=== PATIENT | female | born 1950 | race Caucasian/White ===

== ENCOUNTER 2024-08-16 16:20 | Emergency (ER) | payer OTHER, SELFPAY ==
--- NOTE | ~2024-08-16 | XR_ITS ---
XR chest 1V portable DATE: 08/16/2024 16:55 INDICATION: Weakness TECHNIQUE: Portable AP chest on 08/16/2024 at 1648 hours COMPARISON: None FINDINGS: Left transvenous pacemaker device with leads overlying right atrium, right ventricle and co ronary sinus. Normal heart size. Aortic arch calcification, aortic unfolding. No hilar or mediastinal enlargement. Minimal atelectasis is suggested at the lung bases. The lungs otherwise appear clear. Osteopenia. Degenerative spurring of the thoracic spine. IMPRESSION: Minimal atelectasis at the lung bases Triple lead left pacemaker device Reviewed, dictated and finalized at [facility].
--- NOTE | ~2024-08-16 | CT_ITS ---
EXAMINATION: CT abdomen pelvis w con DATE: 08/16/2024 19:36 INDICATION: Generalized abdominal pain TECHNIQUE: Computed tomography (CT) of the abdomen and pelvis was performed without intravenous contr ast. Automated exposure control and iterative reconstruction technique were employed. Exam dose: 695 .20 mGy-cm total exam DLP. COMPARISON: None. FINDINGS: Lung bases are clear of infiltrate or consolidation. Pacemaker leads in right atrium, right ventricle and coronary sinus. Heart size is within normal limits. No pericardial or pleural effusion. Multiple scattered hepatic cysts measuring from a few millimeters up to approximately 2.6 cm maximal dimension. No suspicious hepatic space-occupying mass lesion is detected. There is a 5.7 x 8.3 mm calculus at the gallbladder neck. No gallbladder wall thickening or perichole cystic fluid or fat stranding. No bile duct or pancreatic duct dilatation. No pancreatic mass lesion or calcification. Normal splenic size. Normal morphology of the adrenal glands. 1.5 cm right renal cyst. The kidneys are otherwise unremarkable. No urinary tract calculus or hydrour eteronephrosis. The urinary bladder appears unremarkable. The uterus and adnexal areas are likewise u nremarkable. Normal caliber and minimal calcification of the abdominal aorta. There is prominent calcification at the origin of the right renal artery and to a lesser extent left renal artery. No intraperitoneal or retroperitoneal or pelvic mass lesion or adenopathy or ascites is detected. Normal appendix. There are fluid levels within the colon and there are is soft tissue thickening of the colon wall, mo st prominent in the proximal sigmoid colon, suggesting colitis. There are occasional distal sigmoid d iverticulosis; no associated diverticulitis is noted. No bowel obstruction or intraperitoneal free air. Very small fat-containing umbilical hernia. IMPRESSION: Colon wall thickening and colonic air-fluid levels, suggesting colitis Mild distal sigmoid diverticulosis; no apparent diverticulitis Normal appendix Hepatic and right renal cysts 5.7 x 8.3 mm calculus at gallbladder neck; no gallbladder wall thickening or pericholecystic fluid or fat stranding Reviewed, dictated and finalized at [facility]. Reviewed, dictated and finalized at [facility]. IMPRESSION: Colon wall thickening and colonic air-fluid levels, suggesting col itis Mild distal sigmoid diverticulosis; no apparent diverticulitis Normal appendix Hepatic and right renal cysts 5.7 x 8.3 mm calculus at gallbladder neck; no gallbladder wall thickening or pe richolecystic fluid or fat stranding
[2024-08-16 16:22] VITALS: BP 107/63; PULSE 75; RESP 11; TEMP 36.4; O2SAT 95
--- NOTE | 2024-08-16 16:23 | ECG_ITS ---
Test Date: 2024-08-16 16:29:06 Measurements Intervals [place] Rate: 76 P: 53 CA: 187 QRS: -26 QRSD: 123 T: -5 QT: 390 QTc: 440 Interpretive Statements SINUS RHYTHM INTRAVENTRICULAR CONDUCTION DELAY LEFT VENTRICULAR HYPERTROPHY WITH ST-T CHANGE POOR R WAVE PROGRESSION NONSPECIFIC T-WAVE ABNORMALITY- INFERIOR LEADS BASELINE ARTIFACT- III, V3 BORDERLINE ECG No previous ECG available for comparison Electronically Signed On 08-16-2024 19:41:48 CDT by Esvin Murphy D.O.
--- NOTE | 2024-08-16 16:32 | ED_ITS ---
Blood Pressure 129/74 08/16/24 18:54 Pulse Oximetry 100 08/16/24 18:54 Oxygen Delivery Room Air 08/16/24 16:22 MDM - Weakness MDM Narrative Medical decision making narrative: The patient was evaluated by myself in the emergency department. History is obtained from patient who is an independent historian and physical exam was performed. External medical records were reviewed at this time. IV was established and pertinent tests were ordered. Patient was administered 1 L IV fluid bolus with normal saline and 4 mg of IV Zofran for nausea and vomiting. Patient continued to vomit after the Zofran at this time she was administered 10 mg of IV Reglan and 25 mg of IV Benadryl. EKG was obtained which revealed sinus rhythm rate of 76 beats per minute, no evidence of acute ischemia. EKG was independently interpreted by me and is currently pending official cardiology read. Laboratory results obtained including a troponin which revealed no acute process. Urinalysis unremarkable. Imaging studies obtained included CXR which was independently interpreted by me revealing no acute process, which is pending final radiology interpretation. CT abdomen pelvis with IV contrast was also at this time and independently interpreted by me revealin. Colon wall thickening and colonic air-fluid levels, suggesting colitis 2. Mild distal sigmoid diverticulosis; no apparent diverticulitis 3. Normal appendix 4. Hepatic and right renal cysts 5. 5.7 x 8.3 mm calculus at gallbladder neck; no gallbladder wall thickening or pericholecystic fluid or fat stranding. Patient was informed of these findings at bedside. Patient states that she feels significantly better after the nausea medications and the IV fluids. Patient is currently denying any pain in her right upper quadrant and denies any previous history of gallstones. Patient was at home that she will lead to follow-up with her PCP and patient is agreeable with this plan. Stool studies were sent off and patient was informed that these take few days to result. Differential diagnosis considerations include gastroenteritis, dehydration, electrolyte derangements, diverticulitis. Comorbidities impacting this visit include none. I have evaluated and discussed social determinants of health with the patient that could potentially impact subsequent diagnosis and treatment plans. On repeat assessment of the patient, reevaluation revealed that the patient is doing well and is in no acute distress. Patient symptoms have improved since she arrived to our emergency department. Repeat vital signs were all reviewed and noted to be stable. Differential diagnosis and treatment plan were discussed with the patient at bedside. Patient agrees with discussion and after shared medical decision making agrees with discharge. All questions were answered to the patient's satisfaction. Patient will follow up with her PCP in 3-5 days. Patient was provided with a script for Zofran to use as needed for nausea/ vomiting. Patient was provided with strict return precautions and instructed to return to the emergency department if any new or worsening symptoms develop. The patient was discharged in stable condition. Lab Data 08/16/24 16:44 08/16/24 16:44 Labs: Lab Results 08/16/24 08/16/24 Range/Units 16:44 19:06 WBC 11.9 H (4.5-10.0) K/mm3 RBC 5.06 (4.2-5.4) M/mm3 Hgb 15.3 H (12.0-15.0) g/dL
--- NOTE | 2024-08-16 16:32 | ED.WEAKNESS ---
HPI - Weakness General Chief complaint: Weakness Stated complaint: weakness Time Seen by Provider: 08/16/24 16:31 History of Present Illness HPI Narrative: Patient is a 74-year-old female who presents to the emergency department this afternoon complaining of nausea, vomiting and abdominal pain. Patient states the symptoms started shortly after she ate fried cauliflower around 3:45 p.m. Patient states that the abdominal pain is generalized, denies any chest pain or shortness of breath, denies any fevers or chills. Patient denies any similar symptoms in the past. She was at the [facility] when her symptoms started. Shortly after arrival to the emergency department patient did have another vomiting episode and diarrhea. Patient denies any additional symptoms or concerns at this time. Related Data Allergies Allergy/AdvReac Type Severity Reaction Status Date / Time No Known Allergies Allergy Verified 08/16/24 16:36 Review of Systems Review of Systems: All systems are reviewed and are negative unless stated otherwise in the HPI. Exam Narrative: General: Alert, awake, afebrile, in no acute distress. HEENT: PERRL, no rhinorrhea, no post nasal drip, oropharynx clear. Cardiovascular: Regular rate and rhythm, no murmurs, rubs or gallops, no peripheral edema. Respiratory: Clear to auscultation bilaterally, no tachypnea, no wheezing, no rhonchi, no rubs, no respiratory distress. Abdomen: Soft, distended, generalized nonspecific tenderness to palpation, no rebound, no guarding, no peritoneal signs. Musculoskeletal: No joint swelling or deformity, normal muscle tone. Skin: No rashes or petechia, no signs of infection. Neurological: Alert and oriented to person, place, and time. Follows all commands. No focal deficits, speech is clear and fluent. Course Vital Signs Vital signs: Vital Signs Temperature 97.5 F L 08/16/24 16:22 Pulse Rate 75 08/16/24 16:22 Respiratory Rate 11 L 08/16/24 16:22 Blood Pressure 107/63 08/16/24 16:22 Pulse Oximetry 95 08/16/24 16:22 Oxygen Delivery Room Air 08/16/24 16:22 Temperature 97.5 F L 08/16/24 16:22 Pulse Rate 90 08/16/24 18:54 Respiratory Rate 14 08/16/24 18:54 Blood Pressure 129/74 08/16/24 18:54 Pulse Oximetry 100 08/16/24 18:54 Oxygen Delivery Room Air 08/16/24 16:22 MDM - Weakness MDM Narrative Medical decision making narrative: The patient was evaluated by myself in the emergency department. History is obtained from patient who is an independent historian and physical exam was performed. External medical records were reviewed at this time. IV was established and pertinent tests were ordered. Patient was administered 1 L IV fluid bolus with normal saline and 4 mg of IV Zofran for nausea and vomiting. Patient continued to vomit after the Zofran at this time she was administered 10 mg of IV Reglan and 25 mg of IV Benadryl. EKG was obtained which revealed sinus rhythm rate of 76 beats per minute, no evidence of acute ischemia. EKG was independently interpreted by me and is currently pending official cardiology read. Laboratory results obtained including a troponin which revealed no acute process. Urinalysis unremarkable. Imaging studies obtained included CXR which was independently interpreted by me revealing no acute process, which is pending final radiology interpretation. CT abdomen pelvis with IV contrast was also at this time and independently interpreted by me revealin. Colon wall thickening and colonic air-fluid levels, suggesting colitis 2. Mild distal sigmoid diverticulosis; no apparent diverticulitis 3. Normal appendix 4. Hepatic and right renal cysts 5. 5.7 x 8.3 mm calculus at gallbladder neck; no gallbladder wall thickening or pericholecystic fluid or fat stranding. Patient was informed of these findings at bedside. Patient states that she feels significantly better after the nausea medications and the IV fluids. Patient
[2024-08-16 16:53] LABS: Basophils Absolute Auto 0.1 K/mm3 (0.0-0.1); Basophils Percent Auto 0.4 % (0.2-1.2); Eosinophils Absolute Auto 0.1 K/mm3 (0-0.3); Eosinophils Percent Auto 0.8 % (0-4.4); Hematocrit 45.4 % (37.0-47.0); Hemoglobin 15.3 g/dL (12.0-15.0); Immature Granulocyte Absolute 0.04 K/mm3 (0.00-0.031); Immature Granulocyte Percent A 0.3 % (0-0.5); Lymphocytes Absolute Auto 5.12 K/mm3 (0.9-3.2); Lymphocytes Percent Auto 43.2 % (18.3-44.2); Mean Corpuscular HGB Conc 33.7 g/dl (32-36); Mean Corpuscular Hemoglobin 30.2 pg (26-34); Mean Corpuscular Volume 89.7 fl (80-100); Mean Platelet Volume 9.2 fl (7.4-10.4); Monocytes Absolute Auto 0.8 K/mm3 (0.1-0.6); Monocytes Percent Auto 6.6 % (2.6-8.5); Neutrophils Absolute Auto 5.8 K/mm3 (1.3-6.7); Neutrophils Percent Auto 48.7 % (45.5-73.1); Platelet Count Result 213 k/mm3 (150-375); Red Blood Count 5.06 M/mm3 (4.2-5.4); Red Cell Distribution Width 13.4 % (11.5-14.5); White Blood Count 11.9 K/mm3 (4.5-10.0)
[2024-08-16 17:02] VITALS: BP 114/62; PULSE 75; RESP 11; O2SAT 99
[2024-08-16 17:04] LABS: Alanine Aminotransferase 28 U/L (6-35); Albumin Level 5.1 g/dL (3.5-5.1); Alkaline Phosphatase 53 U/L (38-126); Anion Gap 14 mmol/L (4-12); Aspartate Amino Transferase 33 U/L (14-36); Bilirubin,Total 0.7 mg/dL (0.2-1.3); Blood Urea Nitrogen 30 mg/dL (7-17); Calcium 9.9 mg/dL (8.4-10.2); Carbon Dioxide 22 mmol/L (22-30); Chloride 101 mmol/L (98-107); Estimated CRCL calculation 38 ml/min; Estimated Glomerular Filt Rate 49; Glucose 142 mg/dL (65-110); Magnesium 2.4 mg/dL (1.6-2.3); Potassium 3.7 mmol/L (3.4-5.0); Sodium 137 mmol/L (137-145)
[2024-08-16] MEDS: ONDANSETRON INJ 4 MG/2 ML VIAL IV PUSH (17:36)
[2024-08-16] MEDS: MORPHINE SULFATE (*CRX) 2 MG/ML INJ IV PUSH (17:37)
[2024-08-16 17:38] VITALS: BP 125/58; PULSE 81; RESP 11; O2SAT 98
[2024-08-16 17:41] LABS: NT Pro B Type Natriuretic Pept 248 pg/mL (19.9-100); Troponin I < 0.012 ng/mL (0.000-0.034)
[2024-08-16] MEDS: SODIUM CHLORIDE 0.9% IV 1,000 ML 999 ML IV CONT (18:51)
[2024-08-16] MEDS: METOCLOPRAMIDE HCL INJ 10 MG/2 ML VIAL IV PUSH (18:52)
[2024-08-16] MEDS: diphenhydrAMINE HCl INJ 50 MG/ML VIAL 25 MG IV PUSH (18:53)
[2024-08-16 18:54] VITALS: BP 129/74; PULSE 90; RESP 14; O2SAT 100
[2024-08-16 19:55] LABS: Add Urine Microscopic? YES; Appearance Urine Clear (Clear); Bacteria Urine None Seen /hpf; Bilirubin Urine 1+ (Negative); Blood Urine Negative (Negative); Color Urine Dark Yellow (Yellow); Glucose Urine UA 3+ mg/dL (Negative); Ketones Urine Trace mg/dL (Negative); Leukocyte Esterase Ur Trace LEU/UL (Negative); Mucus Urine Present /lpf; Need Manual Microscopic Reviewed; Nitrate Urine Negative (Negative); Protein Urine Trace mg/dL (Negative); RBC Urine 0-2 /hpf (0-2); Specific Grav Ur 1.022 (1.001-1.035); Squamous Epithelial Cell Urine None Seen /hpf (Few); WBC Urine 0-5 /hpf (0-3); pH Urine 5.5 (5.0-9.0)
[2024-08-16 20:20] VITALS: PULSE 92; RESP 14; TEMP 36.6; O2SAT 99
== END 2024-08-16 20:24 | disposition home or self-care (01) ==
PROVIDERS: Emergency Provider Emergency Medicine; PCP Registered Nurse Psychiatric/Mental Health, Adult
DX: R11.2 Nausea with vomiting, unspecified (principal); R19.7 Diarrhea, unspecified; I45.9 Conduction disorder, unspecified; I51.7 Cardiomegaly; R94.31 Abnormal electrocardiogram [ECG] [EKG]; K57.30 Diverticulosis of large intestine without perforation or abscess without bleeding; N28.1 Cyst of kidney, acquired; K76.89 Other specified diseases of liver; K80.20 Calculus of gallbladder without cholecystitis without obstruction
CPT/HCPCS: 36415; 71045; 74177; 80053; 81001; 83735; 83880; 84484; 85025; 87045; 87427; 87449; 93005; 96361; 96374; 96375; 99284; J1200; J2270; J2405; J2765; J7030; Q9967